=== PATIENT | male | born 2000 | race African-American/Black ===

== ENCOUNTER 2022-01-20 04:56 | Emergency (ER) | payer BC ==
[~2022-01-20] VITALS: Ht 180.3 cm; Wt 62.1 kg
[2022-01-20 05:57] VITALS: BP 110/64
== END 2022-01-20 07:53 | disposition left against medical advice (07) ==
LOC: ER 04:56
DX: Z53.21 Procedure and treatment not carried out due to patient leaving prior to being seen by health care provider (principal)